=== PATIENT | male | born 1955 | race Caucasian/White ===

== ENCOUNTER 2021-10-30 08:00 | Outpatient (CLI) | payer BC | END 2021-10-30 23:59 | disposition home or self-care (01) | LOC: LAB.N 08:00 | PROVIDERS: ATTEND Physician Assistant | DX: U07.1 COVID-19 (principal) | CPT/HCPCS: 87275; 87276 ==

== ENCOUNTER 2021-11-02 17:50 | Emergency (ER) | payer BC ==
--- NOTE | 2021-11-02 18:09 | ED Physician Documentation ---
PD HPI DYSPNEA - Stated complaint Stated Complaint: COVID + - Chief complaint Chief Complaint: Resp - History obtained from History obtained from: Patient (He has been symptomatic with Covid for the last 4 days. No shortness of breath. He did test positive and was referred here from the walk-in clinic for potential antibody therapy.) Review of Systems Constitutional: reports: Chills, Myalgias Nose: reports: Rhinorrhea / runny nose Respiratory: denies: Dyspnea PD PAST MEDICAL HISTORY - Allergies Allergies/Adverse Reactions: Allergies Allergy/AdvReac Type Severity Reaction Status Date / Time No Known Drug Allergies Allergy Verified 11/02/21 18:00 PD ED PE NORMAL - Vitals Vital signs reviewed: Yes - General General: Alert and oriented X 3, No acute distress - Neuro Neuro: Alert and oriented X 3, Normal speech - Psych Psych: Normal mood, Normal affect PD MEDICAL DECISION MAKING - ED course ED course: This gentleman was referred in for potential antibody therapy, he arrived at a time when the pharmacist is not in-house and as such I have no ability to give him antibody therapy at this time. He is welcome to return in the morning for consideration for receiving it. Departure - Departure Disposition: Home, Self Care Clinical Impression: COVID-19 Condition: Good Record reviewed to determine appropriate education?: Yes Instructions: ED Viral Syndrome, COVID-19 [facility] Comments: As discussed you can return tomorrow morning if you would like to receive antibiotic therapy, also as discussed it may not be effective if you have omicron. You do need to quarantine for 14 days after symptom onset.
[2021-11-02 18:15] VITALS: BP 160/96
== END 2021-11-02 18:18 | disposition home or self-care (01) ==
LOC: ED 17:50
DX: U07.1 COVID-19 (principal)
CPT/HCPCS: 99281; 99283

== ENCOUNTER 2021-11-03 08:39 | Emergency (ER) | payer BC ==
--- NOTE | 2021-11-03 08:50 | ED Physician Documentation ---
PD HPI URI - Stated complaint Stated Complaint: C+ - History obtained from History obtained from: Patient - History of Present Illness Timing - onset: How many days ago (5) Timing duration: Days (5) Timing details: Abrupt onset, Still present Associated symptoms: Fever, Chills, Nasal congestion, Dry cough, Dyspnea. No: Sore throat, NVD Contributing factors: Sick contact (exposure to COVID. Seen in office and had covid test that was positive. Referred to ER for MAB therapy.). No: Travel, Unimmunized, COPD / asthma Similar symptoms before: Has not had sx before Recently seen: Clinic (day prior with COVID TEst that resulted positive today.) Review of Systems Constitutional: reports: Fever, Chills Nose: reports: Rhinorrhea / runny nose, Congestion Throat: denies: Sore throat Cardiac: denies: Chest pain / pressure Respiratory: reports: Dyspnea, Cough GI: reports: Nausea. denies: Abdominal Pain, Vomiting, Diarrhea Skin: denies: Rash, Lesions Neurologic: reports: Generalized weakness. denies: Near syncope, Altered mental status, Headache PD PAST MEDICAL HISTORY - Past Medical History Cardiovascular: Hypertension, High cholesterol, Atrial fibrillation Respiratory: None Endocrine/Autoimmune: None - Present Medications Home Medications: Ambulatory Orders Medication Instructions Recorded Confirmed Flecainide Acetate 50 mg PO BID 20 Days #40 tab 11/03/21 Metoprolol Succinate [Toprol Xl] 12.5 mg PO DAILY 20 Days #10 tab 11/03/21 Rosuvastatin Calcium [Crestor] 5 mg PO DAILY 20 Days #20 tab 11/03/21 - Allergies Allergies/Adverse Reactions: Allergies Allergy/AdvReac Type Severity Reaction Status Date / Time No Known Drug Allergies Allergy Verified 11/03/21 09:01 - Social History Does the pt smoke?: No Smoking Status: Never smoker PD ED PE NORMAL - Vitals Vital signs reviewed: Yes - General General: Alert and oriented X 3, No acute distress, Well developed/nourished - HEENT HEENT: Moist mucous membranes, Pharynx benign - Neck Neck: Supple, no meningeal sign, No adenopathy - Cardiac Cardiac: RRR, No murmur - Respiratory Respiratory: Clear bilaterally (with some central hilar wheezing on exp noted. No coarse sounds. ) - Abdomen Abdomen: Soft, Non tender - Derm Derm: Normal color, Warm and dry - Extremities Extremities: No edema, No calf tenderness / cord - Neuro Neuro: Alert and oriented X 3, No motor deficit, Normal speech Results - Vitals Vitals: Oxygen O2 Source Room air PD MEDICAL DECISION MAKING - ED course Complexity details: re-evaluated patient (no problems related to the infusion. ), considered differential (discussed MAB therapy and he consented. Will give infusion. ), d/w patient Departure - Departure Disposition: 01 Home, Self Care Clinical Impression: COVID-19 Condition: Stable Prescriptions: Rosuvastatin Calcium [Crestor] 5 mg PO DAILY 20 Days #20 tab Flecainide Acetate 50 mg PO BID 20 Days #40 tab Metoprolol Succinate [Toprol Xl] 12.5 mg PO DAILY 20 Days #10 tab Comments: Stay well-hydrated. Continue usual medicines. Tylenol ibuprofen as needed for fevers or pains. I wrote for 3 weeks of your usual prescription so they have them available since he will need to be remaining here for at least a couple of weeks before traveling. These are transmitted to [facility] in [place]. Return as needed. Discharge Date/Time: 11/03/21 11:51
[2021-11-03] MEDS ORDERED: CASIRIVIMAB/IMDEVIMAB 10 ML in SODIUM CHLORIDE 0.9% 50 ML IV ONE (09:30)
[2021-11-03 11:44] VITALS: BP 125/94
== END 2021-11-03 11:51 | disposition home or self-care (01) ==
LOC: ED 08:39
DX: U07.1 COVID-19 (principal); I10 Essential (primary) hypertension; I48.91 Unspecified atrial fibrillation
CPT/HCPCS: 99283; J7040; M0243; Q0244